=== PATIENT | male | born 1955 | race Two or more races ===

== ENCOUNTER 2020-04-15 22:26 | Inpatient (IN) | payer MEDICARE, MEDICAID ==
[~2020-04-15] VITALS: Ht 182.9 cm; Wt 93.0 kg
[2020-04-15] MEDS ORDERED: ETOMIDATE 2MG/ML 10ML VIAL IV ONE ×2 (22:50→23:30)
[2020-04-15] MEDS ORDERED: VECURONIUM BROMIDE 10 MG/VIAL IV ONE ×2 (22:50→23:30)
[2020-04-15] MEDS ORDERED: ONDANSETRON HCL 4MG/2ML INJ IV STA (23:18)
[2020-04-15] MEDS ORDERED: NOREPINEPHRINE 4 MG in DEXT 5% WATER 250 ML IV STA (23:18)
[2020-04-15] MEDS ORDERED: ACETAMINOPHEN 650MG SUPP PR STA (23:18)
[2020-04-15] MEDS ORDERED: SODIUM CHLORIDE 0.9% 1000ML BAG (SEPSIS BOLUS) IV ONE (23:30)
[2020-04-15] MEDS ORDERED: PIPERACILLIN/TAZ 3.375G PREMIX 50 ML IV ONE (23:30)
[2020-04-15] MEDS ORDERED: NOREPINEPHRINE 4 MG in DEXT 5% WATER 250 ML IV NR (23:30)
[2020-04-15] MEDS ORDERED: VANCOMYCIN 1 G PREMIX 200 ML IV ONE (23:30)
[2020-04-15 23:40] LABS: BG BASE EXCESS -2.3 mmol/L (-2.0-2.0); BG DEOXYHEMOGLOBIN 9.2 % (0.0-5.0); BG FRACTION INSPIRED OXYGEN 100; BG HCO3 ACT 21.5 mmol/L (22.0-26.0); BG METHEMOGLOBIN 0.3 % (0.0-1.5); BG OXYGEN SATURATION 90.8 % (92.0-98.5); BG OXYHEMOGLOBIN 90.5 % (94.0-97.0); BG PCO2 33.6 mmHg (35.0-45.0); BG PH 7.423 (7.350-7.450); BG PO2 61.6 mmHg (75.0-100.0); BG SAMPLE SITE RIGHT BRACHIAL; BG TIDAL VOLUME(mL) 500 mL; BG TOTAL HEMOGLOBIN 12.2 g/dL (12.0-18.0); BG VENT MODE VENT - A/C
[2020-04-15 23:45] LABS: CHLORIDE 109 mEq/L (98-107); HEMATOCRIT. 39.9 % (42.0-52.0); HEMOGLOBIN. 12.8 g/dL (14.0-18.0); MEAN CORPUSCULAR VOLUME 93.8 fL (80.0-94.0); MEAN PLATELET VOLUME 11.1 fl (7.4-10.4); PLATELET 246 x1000/uL (130-400); RED BLOOD CELL COUNT 4.25 mill/uL (4.7-6.1); RED CELL DISTRIBUTION WIDTH 14.6 % (11.6-14.6)
[2020-04-15 23:47] LABS: INR 1.5; PROTHROMBIN TIME 15.4 sec (9.6-11.0)
[2020-04-15 23:58] LABS: CLARITY URINE TURBID (CLEAR); COLOR URINE YELLOW (YELLOW); KETONES URINE NEGATIVE (NEGATIVE); LEUKOCYTE ESTERASE URINE 3+ (NEGATIVE); NITRITE URINE NEGATIVE (NEGATIVE); OCCULT BLOOD URINE 2+ (NEGATIVE); PROTEIN URINE 3+ (NEGATIVE); SPECIFIC GRAVITY URINE 1.031 (1.005-1.030); UROBILINOGEN URINE 0.2 E.U./dL (0.2-1.0)
[2020-04-16 00:19] LABS: BG TOTAL RESPIRATORY RATE 20 b/min; BG VENT RATE 16 set
[2020-04-16 00:32] LABS: PLATELET ESTIMATE NORMAL
[2020-04-16] MEDS ORDERED: NOREPINEPHRINE 4MG/250ML PMX 250 ML IV PRN (04:30)
[2020-04-16 05:43] LABS: HEMATOCRIT. 39.4 % (42.0-52.0); HEMOGLOBIN. 12.6 g/dL (14.0-18.0); MEAN CORPUSCULAR HEMOGLOBIN 29.7 pg (28.0-32.0); MEAN CORPUSCULAR VOLUME 92.7 fL (80.0-94.0); MEAN PLATELET VOLUME 10.6 fl (7.4-10.4); PLATELET 231 x1000/uL (130-400); RED BLOOD CELL COUNT 4.25 mill/uL (4.7-6.1); RED CELL DISTRIBUTION WIDTH 14.4 % (11.6-14.6)
[2020-04-16 05:58] LABS: CHLORIDE 113 mEq/L (98-107)
[2020-04-16 06:23] LABS: PLATELET ESTIMATE NORMAL
[2020-04-16] MEDS ORDERED: ONDANSETRON HCL 4MG/2ML INJ IV PRN (09:00)
[2020-04-16] MEDS: ACETAMINOPHEN 650MG SUPP PR PRN ×2 (09:28→18:11)
[2020-04-16] MEDS: SODIUM CHLORIDE 0.9% 1,000 ML IV SCH ×2 (09:42→20:04)
[2020-04-16] MEDS: PIPERACILLIN/TAZ 3.375G PREMIX 50 ML IV SCH ×3 (11:09→23:59)
[2020-04-16] MEDS: VANCOMYCIN 1 G PREMIX 200 ML IV SCH ×2 (12:01→23:59)
[2020-04-16] MEDS ORDERED: LORAZEPAM 2MG/ML CPJ IV PRN ×2 (13:00→20:00)
[2020-04-16] MEDS: LEVETIRACETAM 500MG PREMIX 100 ML IV SCH (13:39)
[2020-04-16] MEDS ORDERED: IPRATROPIUM/ALBUTEROL 0.5-3(2.5)MG/3ML NEB HHN PRN (19:45)
[2020-04-16] MEDS ORDERED: FENTANYL CITRATE/PF 1,000 MCG in SODIUM CHLORIDE 0.9% 80 ML IV PRN (20:00)
[2020-04-16] MEDS ORDERED: NOREPINEPHRINE 32 MG in DEXT 5% WATER 468 ML IV PRN (21:00)
[2020-04-16] MEDS: ACETYLCYSTEINE 100MG/ML 10% VIAL 4ML INH SCH (22:00)
[2020-04-16] MEDS: NOREPINEPHRINE 32 MG in DEXT 5% WATER 468 ML IV PRN (22:44)
[2020-04-17] VITALS (18 sets, daily range): BP systolic 93–144; BP diastolic 58–84
[2020-04-17] MEDS: ENOXAPARIN 100MG/ML SYR SUBCUT SCH ×3 (00:14→23:49)
[2020-04-17] MEDS: ACETYLCYSTEINE 100MG/ML 10% VIAL 4ML INH SCH ×3 (00:33→13:06)
[2020-04-17] MEDS: LEVETIRACETAM 500MG PREMIX 100 ML IV SCH ×3 (01:18→20:40)
[2020-04-17] MEDS ORDERED: IPRATROPIUM/ALBUTEROL 0.5-3(2.5)MG/3ML NEB ONE (04:17)
[2020-04-17 05:03] LABS: CHLORIDE 116 mEq/L (98-107)
[2020-04-17 05:09] LABS: HDL CHOLESTEROL 11 mg/dL (40-59); LDL CHOLESTEROL 25 mg/dL (5-100)
[2020-04-17 05:26] LABS: HEMATOCRIT. 45.6 % (42.0-52.0); HEMOGLOBIN. 14.3 g/dL (14.0-18.0); MEAN CORPUSCULAR HEMOGLOBIN 29.7 pg (28.0-32.0); MEAN CORPUSCULAR VOLUME 94.8 fL (80.0-94.0); MEAN PLATELET VOLUME 11.6 fl (7.4-10.4); PLATELET 150 x1000/uL (130-400); RED BLOOD CELL COUNT 4.81 mill/uL (4.7-6.1); RED CELL DISTRIBUTION WIDTH 15.1 % (11.6-14.6)
[2020-04-17] MEDS: PIPERACILLIN/TAZ 3.375G PREMIX 50 ML IV SCH ×2 (05:48→09:30)
[2020-04-17] MEDS ORDERED: PIPERACILLIN/TAZ 3.375G PREMIX 50 ML IV ONE ×2 (05:51→07:52)
[2020-04-17] MEDS ORDERED: DEXTROSE 50% WATER 50ML SYRINGE IV PRN (06:00)
[2020-04-17] MEDS: INSULIN LISPRO (HIGH DOSE) 100 UNITS/ML SUBCUT SCH ×2 (06:26→12:00)
[2020-04-17] MEDS: BLOOD SUGAR DIAGNOSTIC STRIP TEST SCH ×4 (06:28→23:26)
[2020-04-17] MEDS ORDERED: INSULIN LISPRO 100 UNITS/ML SUBCUT NR (06:29)
[2020-04-17] MEDS ORDERED: INSULIN LISPRO 100 UNITS/ML SUBCUT ONE ×2 (06:30→06:43)
[2020-04-17] MEDS ORDERED: KCL 20MEQ/100ML PREMIX 100 ML IV NR (06:45)
[2020-04-17] MEDS: SODIUM CHLORIDE 0.9% 1,000 ML IV SCH (06:49)
[2020-04-17 08:50] LABS: BG BASE EXCESS -1.8 mmol/L (-2.0-2.0); BG CARBOXYHEMOGLOBIN 0.3 % (0.5-1.5); BG DEOXYHEMOGLOBIN 1.2 % (0.0-5.0); BG FRACTION INSPIRED OXYGEN 100; BG HCO3 ACT 23.6 mmol/L (22.0-26.0); BG METHEMOGLOBIN 0.3 % (0.0-1.5); BG OXYGEN SATURATION 98.8 % (92.0-98.5); BG OXYHEMOGLOBIN 98.2 % (94.0-97.0); BG PCO2 42.6 mmHg (35.0-45.0); BG PH 7.361 (7.350-7.450); BG PO2 160.3 mmHg (75.0-100.0); BG SAMPLE SITE RIGHT BRACHIAL; BG TIDAL VOLUME(mL) 500 mL; BG TOTAL HEMOGLOBIN 12.3 g/dL (12.0-18.0); BG VENT MODE VENT - A/C; BG VENT RATE 16 set
[2020-04-17] MEDS: PANTOPRAZOLE SODIUM 40 MG/VIAL IV SCH (09:00)
[2020-04-17] MEDS: IPRATROPIUM/ALBUTEROL 0.5-3(2.5)MG/3ML NEB HHN SCH ×4 (09:40→19:58)
[2020-04-17] MEDS: INSULIN GLARGINE UD 100 UNITS/ML SYR SUBCUT SCH ×2 (11:00→21:53)
[2020-04-17 12:08] LABS: PLATELET ESTIMATE NORMAL
[2020-04-17] MEDS: ACETAMINOPHEN 650MG SUPP PR PRN (15:46)
[2020-04-17] MEDS: FENTANYL CITRATE/PF 1,000 MCG in SODIUM CHLORIDE 0.9% 80 ML IV PRN ×2 (17:00→19:15)
[2020-04-17] MEDS ORDERED: VECURONIUM BROMIDE 10 MG/VIAL IV ONE (17:22)
[2020-04-17] MEDS ORDERED: ETOMIDATE 2MG/ML 10ML VIAL IV ONE (17:22)
[2020-04-17] MEDS: SODIUM CHLORIDE 0.45% 1,000 ML IV SCH (17:23)
[2020-04-17] MEDS: INSULIN LISPRO 100 UNITS/ML SUBCUT SCH ×2 (17:34→23:27)
[2020-04-17] MEDS ORDERED: VANCOMYCIN 1250MG in DEXTROSE 5% WATER 250ML IV SCH (18:00)
[2020-04-17] MEDS: PIPERACILLIN/TAZOBACTAM 3.375 G in DEXT 5% WATER 100 ML IV SCH ×2 (18:30→23:45)
[2020-04-17] MEDS: VANCOMYCIN 1250MG in DEXTROSE 5% WATER 250ML IV SCH (20:40)
[2020-04-18] VITALS (71 sets, daily range): BP systolic 79–137; BP diastolic 49–94
[2020-04-18] MEDS: IPRATROPIUM/ALBUTEROL 0.5-3(2.5)MG/3ML NEB HHN SCH ×5 (00:33→16:00)
[2020-04-18] MEDS: ACETAMINOPHEN 650MG SUPP PR PRN (05:26)
[2020-04-18] MEDS: PIPERACILLIN/TAZOBACTAM 3.375 G in DEXT 5% WATER 100 ML IV SCH ×4 (05:30→23:55)
[2020-04-18] MEDS: INSULIN LISPRO 100 UNITS/ML SUBCUT SCH ×3 (06:00→18:00)
[2020-04-18 06:15] LABS: HEMATOCRIT. 31.6 % (42.0-52.0); HEMOGLOBIN. 10.1 g/dL (14.0-18.0); MEAN CORPUSCULAR HEMOGLOBIN 29.8 pg (28.0-32.0); MEAN CORPUSCULAR VOLUME 92.8 fL (80.0-94.0); MEAN PLATELET VOLUME 11.4 fl (7.4-10.4); PLATELET 165 x1000/uL (130-400); RED BLOOD CELL COUNT 3.41 mill/uL (4.7-6.1); RED CELL DISTRIBUTION WIDTH 14.7 % (11.6-14.6)
[2020-04-18] MEDS: BLOOD SUGAR DIAGNOSTIC STRIP TEST SCH ×3 (06:19→18:00)
[2020-04-18 07:38] LABS: BG BASE EXCESS -0.1 mmol/L (-2.0-2.0); BG CARBOXYHEMOGLOBIN 0.3 % (0.5-1.5); BG DEOXYHEMOGLOBIN 9.3 % (0.0-5.0); BG FRACTION INSPIRED OXYGEN 60; BG HCO3 ACT 24.4 mmol/L (22.0-26.0); BG METHEMOGLOBIN 0.3 % (0.0-1.5); BG OXYGEN SATURATION 90.6 % (92.0-98.5); BG OXYHEMOGLOBIN 90.1 % (94.0-97.0); BG PCO2 39.4 mmHg (35.0-45.0); BG PO2 56.7 mmHg (75.0-100.0); BG SAMPLE SITE RIGHT RADIAL; BG TIDAL VOLUME(mL) 500 mL; BG TOTAL HEMOGLOBIN 11.1 g/dL (12.0-18.0); BG VENT MODE VENT - A/C; BG VENT RATE 16 set
[2020-04-18] MEDS: ACETYLCYSTEINE 100MG/ML 10% VIAL 4ML INH SCH ×2 (08:10→16:00)
[2020-04-18] MEDS: LEVETIRACETAM 500MG PREMIX 100 ML IV SCH ×2 (08:12→21:52)
[2020-04-18] MEDS: PANTOPRAZOLE SODIUM 40 MG/VIAL IV SCH (08:12)
[2020-04-18] MEDS: SODIUM CHLORIDE 0.45% 1,000 ML IV SCH ×2 (08:12→17:59)
[2020-04-18] MEDS ORDERED: KCL 20MEQ/100ML PREMIX 100 ML IV NR (09:00)
[2020-04-18] MEDS: INSULIN GLARGINE UD 100 UNITS/ML SYR SUBCUT SCH ×2 (10:31→22:57)
[2020-04-18 11:36] LABS: BG BASE EXCESS -0.5 mmol/L (-2.0-2.0); BG CARBOXYHEMOGLOBIN 0.3 % (0.5-1.5); BG DEOXYHEMOGLOBIN 1.2 % (0.0-5.0); BG FRACTION INSPIRED OXYGEN 75; BG HCO3 ACT 22.8 mmol/L (22.0-26.0); BG METHEMOGLOBIN 0.3 % (0.0-1.5); BG OXYGEN SATURATION 98.8 % (92.0-98.5); BG OXYHEMOGLOBIN 98.2 % (94.0-97.0); BG PCO2 32.8 mmHg (35.0-45.0); BG PO2 168.1 mmHg (75.0-100.0); BG SAMPLE SITE RIGHT RADIAL; BG TIDAL VOLUME(mL) 500 mL; BG VENT MODE VENT - A/C; BG VENT RATE 14 set
[2020-04-18 12:11] LABS: PLATELET ESTIMATE NORMAL
[2020-04-18] MEDS: ENOXAPARIN 100MG/ML SYR SUBCUT SCH (12:36)
[2020-04-18] MEDS: VANCOMYCIN 1250MG in DEXTROSE 5% WATER 250ML IV SCH (15:00)
[2020-04-19] VITALS (49 sets, daily range): BP systolic 94–142; BP diastolic 57–78
[2020-04-19] MEDS: ENOXAPARIN 100MG/ML SYR SUBCUT SCH
[2020-04-19] MEDS: ACETYLCYSTEINE 100MG/ML 10% VIAL 4ML INH SCH ×3 (00:18→16:12)
[2020-04-19] MEDS: IPRATROPIUM/ALBUTEROL 0.5-3(2.5)MG/3ML NEB HHN SCH ×6 (00:18→22:03)
[2020-04-19 05:41] LABS: HEMOGLOBIN. 9.6 g/dL (14.0-18.0); MEAN CORPUSCULAR HEMOGLOBIN 29.8 pg (28.0-32.0); MEAN CORPUSCULAR VOLUME 93.2 fL (80.0-94.0); MEAN PLATELET VOLUME 11.4 fl (7.4-10.4); PLATELET 119 x1000/uL (130-400); RED BLOOD CELL COUNT 3.22 mill/uL (4.7-6.1); RED CELL DISTRIBUTION WIDTH 14.5 % (11.6-14.6)
[2020-04-19] MEDS: SODIUM CHLORIDE 0.45% 1,000 ML IV SCH ×2 (05:55→19:10)
[2020-04-19] MEDS: PIPERACILLIN/TAZOBACTAM 3.375 G in DEXT 5% WATER 100 ML IV SCH ×4 (05:55→23:44)
[2020-04-19] MEDS: INSULIN LISPRO 100 UNITS/ML SUBCUT SCH ×5 (06:00→23:44)
[2020-04-19] MEDS: BLOOD SUGAR DIAGNOSTIC STRIP TEST SCH ×5 (06:23→23:44)
[2020-04-19 08:53] LABS: BG BASE EXCESS 0.3 mmol/L (-2.0-2.0); BG CARBOXYHEMOGLOBIN 0.3 % (0.5-1.5); BG DEOXYHEMOGLOBIN 1.3 % (0.0-5.0); BG FRACTION INSPIRED OXYGEN 50; BG HCO3 ACT 24.6 mmol/L (22.0-26.0); BG METHEMOGLOBIN 0.3 % (0.0-1.5); BG OXYGEN SATURATION 98.7 % (92.0-98.5); BG OXYHEMOGLOBIN 98.1 % (94.0-97.0); BG PCO2 38.2 mmHg (35.0-45.0); BG PH 7.426 (7.350-7.450); BG PO2 134.3 mmHg (75.0-100.0); BG SAMPLE SITE RIGHT RADIAL; BG TIDAL VOLUME(mL) 500 mL; BG TOTAL HEMOGLOBIN 10.2 g/dL (12.0-18.0); BG VENT MODE VENT - A/C; BG VENT RATE 14 set
[2020-04-19] MEDS: LEVETIRACETAM 500MG PREMIX 100 ML IV SCH ×2 (10:53→21:55)
[2020-04-19] MEDS: ASCORBIC ACID 500 MG TABLET PO SCH (10:53)
[2020-04-19] MEDS: ZINC SULFATE 220 MG ( 50 ) CAPSULE PO SCH (10:53)
[2020-04-19] MEDS: PANTOPRAZOLE SODIUM 40 MG/VIAL IV SCH (10:53)
[2020-04-19] MEDS: INSULIN GLARGINE UD 100 UNITS/ML SYR SUBCUT SCH ×2 (10:54→22:51)
[2020-04-19 11:42] LABS: PLATELET ESTIMATE SLIGHTLY DECREASED
[2020-04-19 13:19] LABS: BG BASE EXCESS 0.2 mmol/L (-2.0-2.0); BG CARBOXYHEMOGLOBIN 0.3 % (0.5-1.5); BG FRACTION INSPIRED OXYGEN 45; BG HCO3 ACT 24.2 mmol/L (22.0-26.0); BG METHEMOGLOBIN 0.3 % (0.0-1.5); BG OXYHEMOGLOBIN 97.4 % (94.0-97.0); BG PCO2 36.5 mmHg (35.0-45.0); BG PH 7.439 (7.350-7.450); BG PO2 105.1 mmHg (75.0-100.0); BG SAMPLE SITE RIGHT RADIAL; BG TIDAL VOLUME(mL) 500 mL; BG TOTAL HEMOGLOBIN 10.2 g/dL (12.0-18.0); BG VENT MODE VENT - A/C; BG VENT RATE 14 set
[2020-04-19 16:06] LABS: BG BASE EXCESS 0.8 mmol/L (-2.0-2.0); BG CARBOXYHEMOGLOBIN 0.3 % (0.5-1.5); BG DEOXYHEMOGLOBIN 2.4 % (0.0-5.0); BG FRACTION INSPIRED OXYGEN 40; BG HCO3 ACT 24.3 mmol/L (22.0-26.0); BG METHEMOGLOBIN 0.3 % (0.0-1.5); BG OXYGEN SATURATION 97.6 % (92.0-98.5); BG PCO2 34.4 mmHg (35.0-45.0); BG PH 7.467 (7.350-7.450); BG PO2 98.2 mmHg (75.0-100.0); BG PRESSURE SUPPORT 12; BG SAMPLE SITE RIGHT RADIAL; BG TIDAL VOLUME(mL) 500 mL; BG VENT MODE VENT - SIMV; BG VENT RATE 12 set
[2020-04-19] MEDS: ACETAMINOPHEN 650MG SUPP PR PRN (19:11)
[2020-04-19] MEDS: LORAZEPAM 2MG/ML CPJ IV PRN (20:41)
[2020-04-20] VITALS (49 sets, daily range): BP systolic 86–159; BP diastolic 47–101
[2020-04-20] MEDS: ACETYLCYSTEINE 100MG/ML 10% VIAL 4ML INH SCH ×2 (01:16→08:28)
[2020-04-20] MEDS: IPRATROPIUM/ALBUTEROL 0.5-3(2.5)MG/3ML NEB HHN SCH ×5 (01:17→20:32)
[2020-04-20] MEDS: LORAZEPAM 2MG/ML CPJ IV PRN ×2 (02:29→07:11)
[2020-04-20] MEDS: PIPERACILLIN/TAZOBACTAM 3.375 G in DEXT 5% WATER 100 ML IV SCH ×4 (05:55→23:52)
[2020-04-20] MEDS: SODIUM CHLORIDE 0.45% 1,000 ML IV SCH ×2 (05:55→19:34)
[2020-04-20] MEDS: INSULIN LISPRO 100 UNITS/ML SUBCUT SCH ×5 (06:00→23:51)
[2020-04-20] MEDS: BLOOD SUGAR DIAGNOSTIC STRIP TEST SCH ×3 (06:27→17:30)
[2020-04-20 06:46] LABS: HEMATOCRIT. 27.9 % (42.0-52.0); HEMOGLOBIN. 9.1 g/dL (14.0-18.0); MEAN CORPUSCULAR HEMOGLOBIN 30.1 pg (28.0-32.0); MEAN CORPUSCULAR VOLUME 92.4 fL (80.0-94.0); MEAN PLATELET VOLUME 11.2 fl (7.4-10.4); PLATELET 117 x1000/uL (130-400); RED BLOOD CELL COUNT 3.03 mill/uL (4.7-6.1); RED CELL DISTRIBUTION WIDTH 14.4 % (11.6-14.6)
[2020-04-20] MEDS: ASCORBIC ACID 500 MG TABLET PO SCH (08:19)
[2020-04-20] MEDS: ZINC SULFATE 220 MG ( 50 ) CAPSULE PO SCH (08:19)
[2020-04-20] MEDS: LEVETIRACETAM 500MG PREMIX 100 ML IV SCH ×2 (08:19→21:03)
[2020-04-20] MEDS: PANTOPRAZOLE SODIUM 40 MG/VIAL IV SCH (08:19)
[2020-04-20] MEDS: ENOXAPARIN 40MG/0.4ML SYR SUBCUT SCH (08:20)
[2020-04-20 08:25] LABS: BG BASE EXCESS -5.5 mmol/L (-2.0-2.0); BG CARBOXYHEMOGLOBIN 0.3 % (0.5-1.5); BG DEOXYHEMOGLOBIN 5.8 % (0.0-5.0); BG FRACTION INSPIRED OXYGEN 40; BG HCO3 ACT 18.5 mmol/L (22.0-26.0); BG METHEMOGLOBIN 0.3 % (0.0-1.5); BG OXYGEN SATURATION 94.2 % (92.0-98.5); BG OXYHEMOGLOBIN 93.6 % (94.0-97.0); BG PCO2 31.2 mmHg (35.0-45.0); BG PH 7.392 (7.350-7.450); BG PO2 68.6 mmHg (75.0-100.0); BG PRESSURE SUPPORT 12; BG SAMPLE SITE RIGHT RADIAL; BG TIDAL VOLUME(mL) 500 mL; BG TOTAL HEMOGLOBIN 10.8 g/dL (12.0-18.0); BG VENT MODE VENT - SIMV; BG VENT RATE 10 set
[2020-04-20] MEDS: ACETAMINOPHEN 650MG SUPP PR PRN (08:39)
[2020-04-20 10:35] LABS: PLATELET ESTIMATE DECREASED
[2020-04-20] MEDS: INSULIN GLARGINE UD 100 UNITS/ML SYR SUBCUT SCH ×2 (10:57→22:00)
[2020-04-20] MEDS ORDERED: VANCOMYCIN 1250MG in DEXTROSE 5% WATER 250ML IV SCH (23:00)
[2020-04-21] VITALS (44 sets, daily range): BP systolic 81–148; BP diastolic 50–80
[2020-04-21] MEDS: IPRATROPIUM/ALBUTEROL 0.5-3(2.5)MG/3ML NEB HHN SCH ×6 (00:10→20:47)
[2020-04-21] MEDS: ACETYLCYSTEINE 100MG/ML 10% VIAL 4ML INH SCH ×2 (00:10→14:44)
[2020-04-21 05:58] LABS: BASOPHILS % 0.3 % (0.0-2.0); EOSINOPHILS % 6.8 % (0.0-5.0); HEMATOCRIT. 28.7 % (42.0-52.0); HEMOGLOBIN. 9.4 g/dL (14.0-18.0); LYMPHOCYTES % 7.4 % (20.0-50.0); MEAN CORPUSCULAR HEMOGLOBIN 30.6 pg (28.0-32.0); MEAN CORPUSCULAR VOLUME 93.8 fL (80.0-94.0); MEAN PLATELET VOLUME 10.5 fl (7.4-10.4); MONOCYTES % 8.1 % (2.0-8.0); NEUTROPHILS % 77.4 % (40.0-76.0); PLATELET 126 x1000/uL (130-400); RED BLOOD CELL COUNT 3.06 mill/uL (4.7-6.1); RED CELL DISTRIBUTION WIDTH 14.9 % (11.6-14.6)
[2020-04-21] MEDS: INSULIN LISPRO 100 UNITS/ML SUBCUT SCH ×3 (06:00→17:43)
[2020-04-21] MEDS: BLOOD SUGAR DIAGNOSTIC STRIP TEST SCH ×4 (06:00→17:43)
[2020-04-21] MEDS: SODIUM CHLORIDE 0.45% 1,000 ML IV SCH (09:20)
[2020-04-21] MEDS: PANTOPRAZOLE SODIUM 40 MG/VIAL IV SCH (09:27)
[2020-04-21] MEDS: LEVETIRACETAM 500MG PREMIX 100 ML IV SCH ×2 (09:27→21:07)
[2020-04-21] MEDS: ZINC SULFATE 220 MG ( 50 ) CAPSULE PO SCH (09:27)
[2020-04-21] MEDS: ASCORBIC ACID 500 MG TABLET PO SCH (09:27)
[2020-04-21 09:30] LABS: BG BASE EXCESS -1.4 mmol/L (-2.0-2.0); BG CARBOXYHEMOGLOBIN 0.3 % (0.5-1.5); BG DEOXYHEMOGLOBIN 2.4 % (0.0-5.0); BG FRACTION INSPIRED OXYGEN 45; BG HCO3 ACT 22.1 mmol/L (22.0-26.0); BG METHEMOGLOBIN 0.1 % (0.0-1.5); BG OXYGEN SATURATION 97.6 % (92.0-98.5); BG OXYHEMOGLOBIN 97.2 % (94.0-97.0); BG PCO2 32.1 mmHg (35.0-45.0); BG PH 7.456 (7.350-7.450); BG PO2 95.4 mmHg (75.0-100.0); BG SAMPLE SITE RIGHT RADIAL; BG TIDAL VOLUME(mL) 500 mL; BG TOTAL HEMOGLOBIN 8.9 g/dL (12.0-18.0); BG VENT MODE VENT - A/C; BG VENT RATE 14 set
[2020-04-21] MEDS: ENOXAPARIN 40MG/0.4ML SYR SUBCUT SCH (09:31)
[2020-04-21] MEDS: INSULIN GLARGINE UD 100 UNITS/ML SYR SUBCUT SCH ×2 (11:00→22:15)
[2020-04-21] MEDS: DEXT 5%/0.9% NACL 1,000 ML IV SCH (15:15)
[2020-04-22] VITALS (76 sets, daily range): BP systolic 76–190; BP diastolic 50–108
[2020-04-22] MEDS: IPRATROPIUM/ALBUTEROL 0.5-3(2.5)MG/3ML NEB HHN SCH ×7 (00:14→23:56)
[2020-04-22 05:48] LABS: PROTHROMBIN TIME 10.9 sec (9.6-11.0)
[2020-04-22 05:50] LABS: BASOPHILS % 0.4 % (0.0-2.0); EOSINOPHILS % 6.8 % (0.0-5.0); HEMATOCRIT. 28.3 % (42.0-52.0); HEMOGLOBIN. 9.3 g/dL (14.0-18.0); LYMPHOCYTES % 10.3 % (20.0-50.0); MEAN CORPUSCULAR HEMOGLOBIN 30.3 pg (28.0-32.0); MEAN CORPUSCULAR VOLUME 92.5 fL (80.0-94.0); MEAN PLATELET VOLUME 9.9 fl (7.4-10.4); MONOCYTES % 11.8 % (2.0-8.0); NEUTROPHILS % 70.7 % (40.0-76.0); PLATELET 189 x1000/uL (130-400); RED BLOOD CELL COUNT 3.06 mill/uL (4.7-6.1)
[2020-04-22 05:53] LABS: CHLORIDE 119 mEq/L (98-107)
[2020-04-22] MEDS: INSULIN LISPRO 100 UNITS/ML SUBCUT SCH ×4 (05:55→18:00)
[2020-04-22] MEDS: BLOOD SUGAR DIAGNOSTIC STRIP TEST SCH ×5 (05:55→23:54)
[2020-04-22 05:59] LABS: PHOSPHORUS 1.4 mg/dL (2.5-4.9)
[2020-04-22 06:02] LABS: CREATINE KINASE 39 IU/L (39-308)
[2020-04-22] MEDS: DEXT 5%/0.9% NACL 1,000 ML IV SCH (07:02)
[2020-04-22] MEDS: ZINC SULFATE 220 MG ( 50 ) CAPSULE PO SCH (09:03)
[2020-04-22] MEDS: ASCORBIC ACID 500 MG TABLET PO SCH (09:03)
[2020-04-22] MEDS: PANTOPRAZOLE SODIUM 40 MG/VIAL IV SCH (09:03)
[2020-04-22] MEDS: ENOXAPARIN 40MG/0.4ML SYR SUBCUT SCH (09:04)
[2020-04-22] MEDS: LEVETIRACETAM 500MG PREMIX 100 ML IV SCH ×2 (09:09→20:51)
[2020-04-22 09:59] LABS: BG BASE EXCESS -2.2 mmol/L (-2.0-2.0); BG CARBOXYHEMOGLOBIN 0.3 % (0.5-1.5); BG DEOXYHEMOGLOBIN 2.9 % (0.0-5.0); BG FRACTION INSPIRED OXYGEN 40; BG HCO3 ACT 23.7 mmol/L (22.0-26.0); BG OXYGEN SATURATION 97.1 % (92.0-98.5); BG OXYHEMOGLOBIN 96.8 % (94.0-97.0); BG PCO2 45.2 mmHg (35.0-45.0); BG PH 7.337 (7.350-7.450); BG PO2 97.7 mmHg (75.0-100.0); BG SAMPLE SITE RIGHT RADIAL; BG TIDAL VOLUME(mL) 500 mL; BG TOTAL HEMOGLOBIN 10.2 g/dL (12.0-18.0); BG VENT MODE VENT - A/C; BG VENT RATE 12 set
[2020-04-22] MEDS: HYDROMORPHONE HCL/PF 2MG/ML CPJ IV PRN (10:06)
[2020-04-22] MEDS: ACETAMINOPHEN 650MG/20.3ML UDC PEG PRN ×2 (10:14→20:51)
[2020-04-22] MEDS: INSULIN GLARGINE UD 100 UNITS/ML SYR SUBCUT SCH ×2 (10:36→21:29)
[2020-04-22] MEDS: NOREPINEPHRINE 32 MG in DEXT 5% WATER 468 ML IV PRN (12:56)
[2020-04-22] MEDS ORDERED: DEXT 5%/0.45% NACL 1000ML 1,000 ML IV ONE (18:00)
[2020-04-22] MEDS: DEXT 5%/0.45% NACL 1000ML 1,000 ML IV SCH (19:01)
[2020-04-22] MEDS ORDERED: POTASSIUM PHOS,M-BASIC-D-BASIC 20 MMOL in DEXT 5% WATER 243.3333 ML IV ONE (20:00)
[2020-04-22 21:05] LABS: ETHANOL BLOOD < 10 mg/dL
[2020-04-22 21:11] LABS: T4 FREE 1.31 ng/dL (0.76-1.46)
[2020-04-22 21:27] LABS: VITAMIN B12 SERUM 1019 pg/mL (211-911)
[2020-04-22 21:30] LABS: FOLIC ACID (FOLATE) SERUM > 20.00 ng/mL (>5.38)
[2020-04-22 21:43] LABS: *AMPHETAMINES SCREEN URINE NEGATIVE (NEGATIVE); *BARBITURATES SCREEN URINE NEGATIVE (NEGATIVE); *BENZODIAZEPINES SCREEN URINE NEGATIVE (NEGATIVE)
[2020-04-22 21:44] LABS: *COCAINE SCREEN URINE NEGATIVE (NEGATIVE); CANNABINOID URINE SCREEN NEGATIVE (NEGATIVE); METHADONE URINE SCREEN NEGATIVE (NEGATIVE); OPIATES URINE SCREEN NEGATIVE (NEGATIVE); PHENCYCLIDINE URINE SCREEN NEGATIVE (NEGATIVE)
[2020-04-22] MEDS: CEFEPIME 1,000 MG in DEXTROSE 5% WATER 50 ML IV SCH (23:59)
[2020-04-23] VITALS (48 sets, daily range): BP systolic 99–167; BP diastolic 55–88
[2020-04-23] MEDS: HYDROMORPHONE HCL/PF 2MG/ML CPJ IV PRN (02:02)
[2020-04-23] MEDS: IPRATROPIUM/ALBUTEROL 0.5-3(2.5)MG/3ML NEB HHN SCH ×5 (03:41→20:25)
[2020-04-23] MEDS: DEXT 5%/0.45% NACL 1000ML 1,000 ML IV SCH ×2 (03:59→13:38)
[2020-04-23] MEDS: BLOOD SUGAR DIAGNOSTIC STRIP TEST SCH ×3 (05:45→17:21)
[2020-04-23] MEDS: INSULIN LISPRO 100 UNITS/ML SUBCUT SCH ×4 (05:49→17:25)
[2020-04-23 06:41] LABS: HEMATOCRIT. 28.2 % (42.0-52.0); HEMOGLOBIN. 8.9 g/dL (14.0-18.0); MEAN CORPUSCULAR HEMOGLOBIN 29.6 pg (28.0-32.0); MEAN CORPUSCULAR VOLUME 93.5 fL (80.0-94.0); MEAN PLATELET VOLUME 9.7 fl (7.4-10.4); PLATELET 226 x1000/uL (130-400); RED BLOOD CELL COUNT 3.02 mill/uL (4.7-6.1); RED CELL DISTRIBUTION WIDTH 14.9 % (11.6-14.6)
[2020-04-23 06:55] LABS: CHLORIDE 119 mEq/L (98-107)
[2020-04-23 07:02] LABS: PHOSPHORUS 2.9 mg/dL (2.5-4.9)
[2020-04-23] MEDS: PANTOPRAZOLE SODIUM 40 MG/VIAL IV SCH (08:02)
[2020-04-23] MEDS: LEVETIRACETAM 500MG PREMIX 100 ML IV SCH ×2 (08:02→20:49)
[2020-04-23] MEDS: ZINC SULFATE 220 MG ( 50 ) CAPSULE PO SCH (08:02)
[2020-04-23] MEDS: ASCORBIC ACID 500 MG TABLET PO SCH (08:02)
[2020-04-23] MEDS: ACETAMINOPHEN 650MG/20.3ML UDC PEG PRN ×2 (08:02→20:48)
[2020-04-23] MEDS: ENOXAPARIN 40MG/0.4ML SYR SUBCUT SCH (08:09)
[2020-04-23 08:46] LABS: BG BASE EXCESS -2.1 mmol/L (-2.0-2.0); BG CARBOXYHEMOGLOBIN 0.3 % (0.5-1.5); BG DEOXYHEMOGLOBIN 1.7 % (0.0-5.0); BG FRACTION INSPIRED OXYGEN 40; BG HCO3 ACT 22.1 mmol/L (22.0-26.0); BG METHEMOGLOBIN 0.3 % (0.0-1.5); BG OXYGEN SATURATION 98.3 % (92.0-98.5); BG OXYHEMOGLOBIN 97.7 % (94.0-97.0); BG PCO2 35.2 mmHg (35.0-45.0); BG PH 7.416 (7.350-7.450); BG PO2 114.3 mmHg (75.0-100.0); BG SAMPLE SITE RIGHT RADIAL; BG TIDAL VOLUME(mL) 500 mL; BG TOTAL HEMOGLOBIN 9.1 g/dL (12.0-18.0); BG VENT MODE VENT - A/C; BG VENT RATE 12 set
[2020-04-23 09:57] LABS: PLATELET ESTIMATE NORMAL
[2020-04-23] MEDS ORDERED: MORPHINE SULFATE 2 MG/ML CPJ (NOT FOR IM USE) IV PRN (10:00)
[2020-04-23] MEDS: INSULIN GLARGINE UD 100 UNITS/ML SYR SUBCUT SCH ×2 (10:24→22:04)
[2020-04-23 13:07] LABS: *CREATININE RANDOM URINE 25.2 mg/dL (Not Estab.); MICROALBUMIN RANDOM URINE 81.7 ug/mL (Not Estab.)
[2020-04-23] MEDS: CEFEPIME 1,000 MG in DEXTROSE 5% WATER 50 ML IV SCH (20:49)
[2020-04-24] VITALS (47 sets, daily range): BP systolic 107–175; BP diastolic 57–88
[2020-04-24] MEDS: IPRATROPIUM/ALBUTEROL 0.5-3(2.5)MG/3ML NEB HHN SCH ×6 (00:15→20:20)
[2020-04-24] MEDS: BLOOD SUGAR DIAGNOSTIC STRIP TEST SCH ×4 (00:22→17:56)
[2020-04-24] MEDS: DEXT 5%/0.45% NACL 1000ML 1,000 ML IV SCH ×2 (00:22→09:58)
[2020-04-24] MEDS: INSULIN LISPRO 100 UNITS/ML SUBCUT SCH ×4 (00:23→17:56)
[2020-04-24] MEDS: MEROPENEM 1,000 MG in SODIUM CHLORIDE 0.9% 100 ML IV SCH ×2 (02:43→14:06)
[2020-04-24 05:45] LABS: CHLORIDE 115 mEq/L (98-107)
[2020-04-24 05:51] LABS: PHOSPHORUS 3.2 mg/dL (2.5-4.9)
[2020-04-24 06:22] LABS: BASOPHILS % 1.1 % (0.0-2.0); EOSINOPHILS % 3.8 % (0.0-5.0); HEMATOCRIT. 29.8 % (42.0-52.0); HEMOGLOBIN. 9.7 g/dL (14.0-18.0); LYMPHOCYTES % 10.5 % (20.0-50.0); MEAN CORPUSCULAR VOLUME 92.6 fL (80.0-94.0); MEAN PLATELET VOLUME 10.3 fl (7.4-10.4); MONOCYTES % 5.3 % (2.0-8.0); NEUTROPHILS % 79.3 % (40.0-76.0); PLATELET 225 x1000/uL (130-400); RED BLOOD CELL COUNT 3.22 mill/uL (4.7-6.1); RED CELL DISTRIBUTION WIDTH 15.2 % (11.6-14.6)
[2020-04-24] MEDS: LEVETIRACETAM 500MG PREMIX 100 ML IV SCH ×2 (08:37→21:28)
[2020-04-24] MEDS: ENOXAPARIN 40MG/0.4ML SYR SUBCUT SCH (08:38)
[2020-04-24] MEDS: ASCORBIC ACID 500 MG TABLET PO SCH (08:38)
[2020-04-24] MEDS: ZINC SULFATE 220 MG ( 50 ) CAPSULE PO SCH (08:38)
[2020-04-24] MEDS: PANTOPRAZOLE SODIUM 40 MG/VIAL IV SCH (08:38)
[2020-04-24] MEDS: INSULIN GLARGINE UD 100 UNITS/ML SYR SUBCUT SCH ×2 (09:58→21:28)
[2020-04-24] MEDS ORDERED: LIDOCAINE HCL 1% 20ML VIAL (Pyxis) INJ ONE (10:52)
[2020-04-24] MEDS: ACETAMINOPHEN 650MG/20.3ML UDC PEG PRN (13:06)
[2020-04-25] VITALS (50 sets, daily range): BP systolic 115–174; BP diastolic 62–91
[2020-04-25] MEDS: BLOOD SUGAR DIAGNOSTIC STRIP TEST SCH ×4 (00:06→18:00)
[2020-04-25] MEDS: IPRATROPIUM/ALBUTEROL 0.5-3(2.5)MG/3ML NEB HHN SCH ×6 (00:10→20:31)
[2020-04-25] MEDS: MEROPENEM 1,000 MG in SODIUM CHLORIDE 0.9% 100 ML IV SCH ×2 (02:09→15:06)
[2020-04-25 05:45] LABS: BASOPHILS % 0.7 % (0.0-2.0); EOSINOPHILS % 3.7 % (0.0-5.0); HEMATOCRIT. 24.8 % (42.0-52.0); LYMPHOCYTES % 10.6 % (20.0-50.0); MEAN CORPUSCULAR HEMOGLOBIN 29.3 pg (28.0-32.0); MEAN CORPUSCULAR VOLUME 91.7 fL (80.0-94.0); MEAN PLATELET VOLUME 9.2 fl (7.4-10.4); MONOCYTES % 4.5 % (2.0-8.0); NEUTROPHILS % 80.5 % (40.0-76.0); PLATELET 292 x1000/uL (130-400); RED BLOOD CELL COUNT 2.71 mill/uL (4.7-6.1); RED CELL DISTRIBUTION WIDTH 14.7 % (11.6-14.6)
[2020-04-25] MEDS: INSULIN LISPRO 100 UNITS/ML SUBCUT SCH ×4 (05:49→18:00)
[2020-04-25 06:07] LABS: PHOSPHORUS 3.6 mg/dL (2.5-4.9)
[2020-04-25] MEDS: DEXT 5%/0.45% NACL 1000ML 1,000 ML IV SCH (06:12)
[2020-04-25] MEDS: ZINC SULFATE 220 MG ( 50 ) CAPSULE PO SCH (09:11)
[2020-04-25] MEDS: LEVETIRACETAM 500MG PREMIX 100 ML IV SCH ×2 (09:11→21:15)
[2020-04-25] MEDS: ENOXAPARIN 40MG/0.4ML SYR SUBCUT SCH (09:11)
[2020-04-25] MEDS: PANTOPRAZOLE SODIUM 40 MG/VIAL IV SCH (09:11)
[2020-04-25] MEDS: ASCORBIC ACID 500 MG TABLET PO SCH (09:11)
[2020-04-25] MEDS ORDERED: AMLODIPINE 2.5MG TABLET PO SCH (10:45)
[2020-04-25] MEDS: INSULIN GLARGINE UD 100 UNITS/ML SYR SUBCUT SCH ×2 (11:18→21:16)
[2020-04-26] VITALS (46 sets, daily range): BP systolic 123–164; BP diastolic 66–88
[2020-04-26] MEDS: IPRATROPIUM/ALBUTEROL 0.5-3(2.5)MG/3ML NEB HHN SCH ×6 (00:20→19:50)
[2020-04-26] MEDS: BLOOD SUGAR DIAGNOSTIC STRIP TEST SCH ×4 (00:20→17:59)
[2020-04-26] MEDS: MEROPENEM 1,000 MG in SODIUM CHLORIDE 0.9% 100 ML IV SCH ×2 (02:01→13:05)
[2020-04-26] MEDS: INSULIN LISPRO 100 UNITS/ML SUBCUT SCH ×4 (06:00→17:59)
[2020-04-26] MEDS: DEXT 5%/0.45% NACL 1000ML 1,000 ML IV SCH (06:08)
[2020-04-26 07:44] LABS: BG BASE EXCESS -0.7 mmol/L (-2.0-2.0); BG CARBOXYHEMOGLOBIN 0.3 % (0.5-1.5); BG DEOXYHEMOGLOBIN 2.2 % (0.0-5.0); BG FRACTION INSPIRED OXYGEN 40; BG METHEMOGLOBIN 0.2 % (0.0-1.5); BG OXYGEN SATURATION 97.8 % (92.0-98.5); BG OXYHEMOGLOBIN 97.3 % (94.0-97.0); BG PCO2 39.3 mmHg (35.0-45.0); BG PH 7.403 (7.350-7.450); BG PO2 110.8 mmHg (75.0-100.0); BG SAMPLE SITE RIGHT RADIAL; BG TIDAL VOLUME(mL) 500 mL; BG TOTAL HEMOGLOBIN 9.1 g/dL (12.0-18.0); BG VENT MODE VENT - A/C; BG VENT RATE 12 set
[2020-04-26] MEDS: ASCORBIC ACID 500 MG TABLET PO SCH (09:17)
[2020-04-26] MEDS: ENOXAPARIN 40MG/0.4ML SYR SUBCUT SCH (09:17)
[2020-04-26] MEDS: AMLODIPINE 2.5MG TABLET NG SCH ×2 (09:17→21:08)
[2020-04-26] MEDS: ZINC SULFATE 220 MG ( 50 ) CAPSULE PO SCH (09:17)
[2020-04-26] MEDS: PANTOPRAZOLE SODIUM 40 MG/VIAL IV SCH (09:17)
[2020-04-26] MEDS: INSULIN GLARGINE UD 100 UNITS/ML SYR SUBCUT SCH ×2 (09:20→21:07)
[2020-04-26] MEDS: LEVETIRACETAM 500MG PREMIX 100 ML IV SCH ×2 (09:20→21:07)
[2020-04-26 09:26] LABS: BASOPHILS % 0.6 % (0.0-2.0); EOSINOPHILS % 2.4 % (0.0-5.0); HEMATOCRIT. 23.7 % (42.0-52.0); HEMOGLOBIN. 7.8 g/dL (14.0-18.0); LYMPHOCYTES % 11.3 % (20.0-50.0); MEAN CORPUSCULAR HEMOGLOBIN 30.3 pg (28.0-32.0); MEAN CORPUSCULAR VOLUME 91.6 fL (80.0-94.0); MONOCYTES % 4.1 % (2.0-8.0); NEUTROPHILS % 81.6 % (40.0-76.0); PLATELET 274 x1000/uL (130-400); RED BLOOD CELL COUNT 2.59 mill/uL (4.7-6.1)
[2020-04-26 12:12] LABS: BG CARBOXYHEMOGLOBIN 0.3 % (0.5-1.5); BG DEOXYHEMOGLOBIN 3.7 % (0.0-5.0); BG FRACTION INSPIRED OXYGEN 30; BG HCO3 ACT 20.5 mmol/L (22.0-26.0); BG METHEMOGLOBIN 0.1 % (0.0-1.5); BG OXYGEN SATURATION 96.3 % (92.0-98.5); BG OXYHEMOGLOBIN 95.9 % (94.0-97.0); BG PCO2 30.3 mmHg (35.0-45.0); BG PH 7.448 (7.350-7.450); BG PO2 84.5 mmHg (75.0-100.0); BG PRESSURE SUPPORT 12; BG SAMPLE SITE RIGHT RADIAL; BG TIDAL VOLUME(mL) 500 mL; BG TOTAL HEMOGLOBIN 8.4 g/dL (12.0-18.0); BG VENT MODE VENT - SIMV; BG VENT RATE 8 set
[2020-04-27] VITALS (45 sets, daily range): BP systolic 115–166; BP diastolic 67–107
[2020-04-27] MEDS: IPRATROPIUM/ALBUTEROL 0.5-3(2.5)MG/3ML NEB HHN SCH ×6 (00:07→20:00)
[2020-04-27] MEDS: BLOOD SUGAR DIAGNOSTIC STRIP TEST SCH ×4 (00:33→18:47)
[2020-04-27] MEDS: MEROPENEM 1,000 MG in SODIUM CHLORIDE 0.9% 100 ML IV SCH ×2 (02:06→13:34)
[2020-04-27 05:15] LABS: BASOPHILS % 0.6 % (0.0-2.0); EOSINOPHILS % 2.3 % (0.0-5.0); HEMATOCRIT. 26.8 % (42.0-52.0); HEMOGLOBIN. 8.9 g/dL (14.0-18.0); LYMPHOCYTES % 14.4 % (20.0-50.0); MEAN CORPUSCULAR HEMOGLOBIN 30.3 pg (28.0-32.0); MEAN CORPUSCULAR VOLUME 91.1 fL (80.0-94.0); MEAN PLATELET VOLUME 8.9 fl (7.4-10.4); MONOCYTES % 4.1 % (2.0-8.0); NEUTROPHILS % 78.6 % (40.0-76.0); PLATELET 334 x1000/uL (130-400); RED BLOOD CELL COUNT 2.94 mill/uL (4.7-6.1)
[2020-04-27 05:24] LABS: CHLORIDE 110 mEq/L (98-107)
[2020-04-27 05:30] LABS: PHOSPHORUS 4.5 mg/dL (2.5-4.9)
[2020-04-27] MEDS: INSULIN LISPRO 100 UNITS/ML SUBCUT SCH ×4 (05:39→18:00)
[2020-04-27] MEDS: DEXT 5%/0.45% NACL 1000ML 1,000 ML IV SCH (05:53)
[2020-04-27 08:32] LABS: BG BASE EXCESS 0.1 mmol/L (-2.0-2.0); BG DEOXYHEMOGLOBIN 3.8 % (0.0-5.0); BG FRACTION INSPIRED OXYGEN 30; BG HCO3 ACT 23.8 mmol/L (22.0-26.0); BG METHEMOGLOBIN 0.2 % (0.0-1.5); BG OXYGEN SATURATION 96.2 % (92.0-98.5); BG PCO2 34.7 mmHg (35.0-45.0); BG PH 7.454 (7.350-7.450); BG PRESSURE SUPPORT 12; BG SAMPLE SITE RIGHT RADIAL; BG TIDAL VOLUME(mL) 500 mL; BG TOTAL HEMOGLOBIN 8.6 g/dL (12.0-18.0); BG VENT MODE VENT - SIMV; BG VENT RATE 8 set
[2020-04-27] MEDS: ASCORBIC ACID 500 MG TABLET PO SCH (09:00)
[2020-04-27] MEDS: INSULIN GLARGINE UD 100 UNITS/ML SYR SUBCUT SCH ×2 (09:57→21:31)
[2020-04-27] MEDS: LEVETIRACETAM 500MG PREMIX 100 ML IV SCH ×2 (09:57→20:54)
[2020-04-27] MEDS: ENOXAPARIN 40MG/0.4ML SYR SUBCUT SCH (09:57)
[2020-04-27] MEDS: PANTOPRAZOLE SODIUM 40 MG/VIAL IV SCH (09:57)
[2020-04-27] MEDS: AMLODIPINE 5MG TABLET NG SCH ×2 (09:58→20:54)
[2020-04-27] MEDS: ZINC SULFATE 220 MG ( 50 ) CAPSULE PO SCH (09:58)
[2020-04-27 15:51] LABS: BG CARBOXYHEMOGLOBIN 0.3 % (0.5-1.5); BG DEOXYHEMOGLOBIN 3.8 % (0.0-5.0); BG FRACTION INSPIRED OXYGEN 30; BG HCO3 ACT 23.6 mmol/L (22.0-26.0); BG METHEMOGLOBIN 0.3 % (0.0-1.5); BG OXYGEN SATURATION 96.2 % (92.0-98.5); BG OXYHEMOGLOBIN 95.6 % (94.0-97.0); BG PCO2 34.2 mmHg (35.0-45.0); BG PH 7.457 (7.350-7.450); BG PO2 80.8 mmHg (75.0-100.0); BG PRESSURE SUPPORT 10; BG SAMPLE SITE RIGHT RADIAL; BG TIDAL VOLUME(mL) 500 mL; BG TOTAL HEMOGLOBIN 8.5 g/dL (12.0-18.0); BG VENT MODE VENT - SIMV; BG VENT RATE 8 set
[2020-04-28] VITALS (32 sets, daily range): BP systolic 121–167; BP diastolic 64–93
[2020-04-28] MEDS: IPRATROPIUM/ALBUTEROL 0.5-3(2.5)MG/3ML NEB HHN SCH ×6 (00:10→20:00)
[2020-04-28] MEDS: MEROPENEM 1,000 MG in SODIUM CHLORIDE 0.9% 100 ML IV SCH ×2 (01:58→13:10)
[2020-04-28] MEDS: BLOOD SUGAR DIAGNOSTIC STRIP TEST SCH ×4 (05:01→17:30)
[2020-04-28] MEDS: INSULIN LISPRO 100 UNITS/ML SUBCUT SCH ×4 (05:01→17:31)
[2020-04-28 06:42] LABS: CHLORIDE 111 mEq/L (98-107)
[2020-04-28] MEDS: DEXT 5%/0.45% NACL 1000ML 1,000 ML IV SCH ×2 (07:33→23:28)
[2020-04-28] MEDS: PANTOPRAZOLE SODIUM 40 MG/VIAL IV SCH (08:26)
[2020-04-28] MEDS: ZINC SULFATE 220 MG ( 50 ) CAPSULE PO SCH (08:26)
[2020-04-28] MEDS: AMLODIPINE 5MG TABLET NG SCH ×2 (08:26→21:34)
[2020-04-28] MEDS: ASCORBIC ACID 500 MG TABLET PO SCH (08:26)
[2020-04-28] MEDS: LEVETIRACETAM 500MG PREMIX 100 ML IV SCH ×2 (08:27→21:34)
[2020-04-28 08:28] LABS: BASOPHILS % 1.2 % (0.0-2.0); EOSINOPHILS % 2.3 % (0.0-5.0); HEMATOCRIT. 27.4 % (42.0-52.0); LYMPHOCYTES % 12.2 % (20.0-50.0); MEAN CORPUSCULAR VOLUME 91.1 fL (80.0-94.0); MONOCYTES % 4.3 % (2.0-8.0); RED BLOOD CELL COUNT 3.01 mill/uL (4.7-6.1); RED CELL DISTRIBUTION WIDTH 15.1 % (11.6-14.6)
[2020-04-28] MEDS: ENOXAPARIN 40MG/0.4ML SYR SUBCUT SCH (08:30)
[2020-04-28 09:04] LABS: BG BASE EXCESS 1.7 mmol/L (-2.0-2.0); BG CARBOXYHEMOGLOBIN 0.3 % (0.5-1.5); BG DEOXYHEMOGLOBIN 3.2 % (0.0-5.0); BG FRACTION INSPIRED OXYGEN 30; BG HCO3 ACT 25.5 mmol/L (22.0-26.0); BG METHEMOGLOBIN 0.4 % (0.0-1.5); BG OXYGEN SATURATION 96.8 % (92.0-98.5); BG OXYHEMOGLOBIN 96.1 % (94.0-97.0); BG PH 7.457 (7.350-7.450); BG PO2 88.7 mmHg (75.0-100.0); BG PRESSURE SUPPORT 10; BG SAMPLE SITE RIGHT RADIAL; BG TIDAL VOLUME(mL) 500 mL; BG TOTAL HEMOGLOBIN 8.6 g/dL (12.0-18.0); BG VENT MODE VENT - SIMV; BG VENT RATE 6 set
[2020-04-28 09:44] LABS: PLATELET 314 x1000/uL (130-400)
[2020-04-28] MEDS: INSULIN GLARGINE UD 100 UNITS/ML SYR SUBCUT SCH ×2 (09:50→21:34)
[2020-04-28 10:42] LABS: BG BASE EXCESS -0.2 mmol/L (-2.0-2.0); BG CARBOXYHEMOGLOBIN 0.3 % (0.5-1.5); BG DEOXYHEMOGLOBIN 3.8 % (0.0-5.0); BG FRACTION INSPIRED OXYGEN 30; BG HCO3 ACT 23.5 mmol/L (22.0-26.0); BG METHEMOGLOBIN 0.3 % (0.0-1.5); BG OXYGEN SATURATION 96.2 % (92.0-98.5); BG OXYHEMOGLOBIN 95.6 % (94.0-97.0); BG PCO2 34.3 mmHg (35.0-45.0); BG PH 7.453 (7.350-7.450); BG PO2 85.1 mmHg (75.0-100.0); BG PRESSURE SUPPORT 8; BG SAMPLE SITE RIGHT RADIAL; BG TOTAL HEMOGLOBIN 9.1 g/dL (12.0-18.0); BG VENT MODE VENT - CPAP
[2020-04-28] MEDS: LOSARTAN POTASSIUM 25 MG TABLET PO SCH (13:09)
[2020-04-29] VITALS (12 sets, daily range): BP systolic 118–141; BP diastolic 65–77
[2020-04-29] MEDS: IPRATROPIUM/ALBUTEROL 0.5-3(2.5)MG/3ML NEB HHN SCH ×6 (00:50→20:44)
[2020-04-29] MEDS: MEROPENEM 1,000 MG in SODIUM CHLORIDE 0.9% 100 ML IV SCH (02:20)
[2020-04-29] MEDS: BLOOD SUGAR DIAGNOSTIC STRIP TEST SCH ×5 (06:00→23:49)
[2020-04-29] MEDS: INSULIN LISPRO 100 UNITS/ML SUBCUT SCH ×5 (06:00→23:50)
[2020-04-29 06:58] LABS: BASOPHILS % 0.6 % (0.0-2.0); EOSINOPHILS % 2.4 % (0.0-5.0); HEMOGLOBIN. 8.7 g/dL (14.0-18.0); LYMPHOCYTES % 15.4 % (20.0-50.0); MEAN CORPUSCULAR HEMOGLOBIN 30.3 pg (28.0-32.0); MEAN CORPUSCULAR VOLUME 91.2 fL (80.0-94.0); MEAN PLATELET VOLUME 8.8 fl (7.4-10.4); MONOCYTES % 4.7 % (2.0-8.0); NEUTROPHILS % 76.9 % (40.0-76.0); PLATELET 354 x1000/uL (130-400); RED BLOOD CELL COUNT 2.86 mill/uL (4.7-6.1)
[2020-04-29] MEDS: LEVETIRACETAM 500MG PREMIX 100 ML IV SCH ×2 (09:10→21:14)
[2020-04-29] MEDS: ZINC SULFATE 220 MG ( 50 ) CAPSULE PO SCH (09:11)
[2020-04-29] MEDS: LOSARTAN POTASSIUM 25 MG TABLET PO SCH (09:11)
[2020-04-29] MEDS: PANTOPRAZOLE SODIUM 40 MG/VIAL IV SCH (09:11)
[2020-04-29] MEDS: ASCORBIC ACID 500 MG TABLET PO SCH (09:11)
[2020-04-29] MEDS: AMLODIPINE 5MG TABLET NG SCH ×2 (09:11→21:14)
[2020-04-29] MEDS: ENOXAPARIN 40MG/0.4ML SYR SUBCUT SCH (09:12)
[2020-04-29] MEDS: FAMOTIDINE 20MG TABLET PO SCH (21:14)
[2020-04-29] MEDS: INSULIN GLARGINE UD 100 UNITS/ML SYR SUBCUT SCH (21:15)
[2020-04-30] VITALS (11 sets, daily range): BP systolic 119–145; BP diastolic 68–88
[2020-04-30] MEDS: IPRATROPIUM/ALBUTEROL 0.5-3(2.5)MG/3ML NEB HHN SCH ×6 (00:37→20:28)
[2020-04-30] MEDS: INSULIN LISPRO 100 UNITS/ML SUBCUT SCH ×3 (06:00→18:00)
[2020-04-30] MEDS: BLOOD SUGAR DIAGNOSTIC STRIP TEST SCH ×3 (06:26→18:10)
[2020-04-30 06:39] LABS: BASOPHILS % 0.7 % (0.0-2.0); HEMATOCRIT. 26.5 % (42.0-52.0); HEMOGLOBIN. 8.7 g/dL (14.0-18.0); LYMPHOCYTES % 18.4 % (20.0-50.0); MEAN CORPUSCULAR HEMOGLOBIN 29.7 pg (28.0-32.0); MEAN CORPUSCULAR VOLUME 90.6 fL (80.0-94.0); MEAN PLATELET VOLUME 8.9 fl (7.4-10.4); MONOCYTES % 6.1 % (2.0-8.0); NEUTROPHILS % 71.8 % (40.0-76.0); PLATELET 374 x1000/uL (130-400); RED BLOOD CELL COUNT 2.93 mill/uL (4.7-6.1); RED CELL DISTRIBUTION WIDTH 14.8 % (11.6-14.6)
[2020-04-30 06:47] LABS: CHLORIDE 105 mEq/L (98-107)
[2020-04-30] MEDS: ASCORBIC ACID 500 MG TABLET PO SCH (09:27)
[2020-04-30] MEDS: LOSARTAN POTASSIUM 25 MG TABLET PO SCH (09:27)
[2020-04-30] MEDS: ZINC SULFATE 220 MG ( 50 ) CAPSULE PO SCH (09:27)
[2020-04-30] MEDS: AMLODIPINE 5MG TABLET NG SCH ×2 (09:27→21:45)
[2020-04-30] MEDS: LEVETIRACETAM 500MG PREMIX 100 ML IV SCH (09:28)
[2020-04-30] MEDS: DEXT 5%/0.45% NACL 1000ML 1,000 ML IV SCH (09:28)
[2020-04-30] MEDS: ENOXAPARIN 40MG/0.4ML SYR SUBCUT SCH (09:28)
[2020-04-30] MEDS: INSULIN GLARGINE UD 100 UNITS/ML SYR SUBCUT SCH ×2 (10:47→21:45)
[2020-04-30] MEDS ORDERED: AMLO5TAB88 NG (11:24)
[2020-04-30] MEDS ORDERED: FAMO20TA8 PO (11:24)
[2020-04-30] MEDS ORDERED: LOSA25TA3 PO (11:24)
[2020-04-30] MEDS ORDERED: ASPI-1158 MT (11:41)
[2020-04-30] MEDS ORDERED: LEVETIRACETAM 500MG TABLET GT SCH (21:30)
[2020-04-30] MEDS: FAMOTIDINE 20MG TABLET PO SCH (21:44)
== END 2020-04-30 22:45 | DRG 870 ==
LOC: ER 22:26 → MICUSO 04-16 02:19 → CVICU 04-17 16:49 → 5EST 04-28 23:00
PROVIDERS: ADMIT Internal Medicine; ATTEND Internal Medicine
PROC: 5A1955Z Respiratory Ventilation, Greater than 96 Consecutive Hours (ICD-10-PCS; principal; 2020-04-15)
PROC: 0BH17EZ Insertion of Endotracheal Airway into Trachea, Via Natural or Artificial Opening (ICD-10-PCS; 2020-04-15)
PROC: 06HY33Z Insertion of Infusion Device into Lower Vein, Percutaneous Approach (ICD-10-PCS; 2020-04-16)
PROC: 05HY33Z Insertion of Infusion Device into Upper Vein, Percutaneous Approach (ICD-10-PCS; 2020-04-24)
PROC: B54NZZA Ultrasonography of Left Upper Extremity Veins, Guidance (ICD-10-PCS; 2020-04-24)
DX: A41.9 Sepsis, unspecified organism (principal); L89.153 Pressure ulcer of sacral region, stage 3; J18.9 Pneumonia, unspecified organism; J96.01 Acute respiratory failure with hypoxia; R65.21 Severe sepsis with septic shock; G92 Toxic encephalopathy; I21.A1 Myocardial infarction type 2; E44.0 Moderate protein-calorie malnutrition; N17.9 Acute kidney failure, unspecified; N39.0 Urinary tract infection, site not specified; E87.0 Hyperosmolality and hypernatremia; E87.2 Acidosis; N28.0 Ischemia and infarction of kidney; I13.0 Hypertensive heart and chronic kidney disease with heart failure and stage 1 through stage 4 chronic kidney disease, or unspecified chronic kidney disease; I50.22 Chronic systolic (congestive) heart failure; N18.9 Chronic kidney disease, unspecified; G40.909 Epilepsy, unspecified, not intractable, without status epilepticus; E11.22 Type 2 diabetes mellitus with diabetic chronic kidney disease; D64.9 Anemia, unspecified; E86.1 Hypovolemia; D72.810 Lymphocytopenia; L89.896 Pressure-induced deep tissue damage of other site; L89.626 Pressure-induced deep tissue damage of left heel; E78.00 Pure hypercholesterolemia, unspecified; Z20.828 Contact with and (suspected) exposure to other viral communicable diseases; E78.5 Hyperlipidemia, unspecified; F01.50 Vascular dementia, unspecified severity, without behavioral disturbance, psychotic disturbance, mood disturbance, and anxiety; B96.1 Klebsiella pneumoniae [K. pneumoniae] as the cause of diseases classified elsewhere; R13.10 Dysphagia, unspecified; Z68.27 Body mass index [BMI] 27.0-27.9, adult; Z93.1 Gastrostomy status; I69.311 Memory deficit following cerebral infarction; Z78.1 Physical restraint status
CPT/HCPCS: 31500; 36415; 36600; 70551; 71045; 76770; 76937; 80048; 80053; 80061; 80202; 80305; 80320; 81003; 82040; 82043; 82140; 82270; 82330; 82375; 82550; 82570; 82607; 82728; 82746; 82805; 82962; 83036; 83605; 83615; 83735; 83880; 84100; 84134; 84145; 84300; 84439; 84443; 84481; 84484; 85025; 86140; 87070; 87077; 87186; 93005; 93306; 93970; 93971; 94002; 94003; 94640; 97161; 99291; C1725; C9113; J0692; J1170; J1650; J1815; J1953; J2060; J2185; J2405; J2543; J3010; J3370; J3480; J3490; J7030; J7042; J7050; J7060; J7608; C9803-CS; G0480; U0003-CS

== ENCOUNTER 2020-05-05 15:56 | Inpatient (IN) | payer MEDICARE, MEDICAID ==
[~2020-05-05] VITALS: Ht 172.7 cm; Wt 86.4 kg
[~2020-05-05 15:56] MED LIST: AMLO5TAB88 NG; FAMO20TA8 PO; LOSA25TA3 PO
[2020-05-05] MEDS ORDERED: SUCCINYLCHOLINE CHLORIDE 200MG/10ML IV ONE (16:12)
[2020-05-05] MEDS ORDERED: ETOMIDATE 2MG/ML 10ML VIAL IV ONE (16:12)
[2020-05-05] MEDS ORDERED: SODIUM CHLORIDE 0.9% 1000ML BAG (SEPSIS BOLUS) IV ONE (16:45)
[2020-05-05] MEDS ORDERED: MIDAZOLAM HCL 50 MG in DEXTROSE 5% WATER 40 ML IV ONE (16:45)
[2020-05-05] MEDS ORDERED: FENTANYL CITRATE/PF 2,500 MCG in SODIUM CHLORIDE 0.9% 200 ML IV PRN ×2 (16:45→17:00)
[2020-05-05] MEDS ORDERED: PIPERACILLIN/TAZ 3.375G PREMIX 50 ML IV ONE (16:45)
[2020-05-05] MEDS ORDERED: VANCOMYCIN 1 G PREMIX 200 ML IV ONE (16:45)
[2020-05-05] MEDS ORDERED: MIDAZOLAM HCL 2 MG/2 ML VIAL IV ONE (16:45)
[2020-05-05] MEDS ORDERED: MIDAZOLAM HCL 100 MG in DEXT 5% WATER 80 ML IV NR (17:00)
[2020-05-05] MEDS ORDERED: NOREPINEPHRINE 4MG/250ML PMX 250 ML IV ONE (17:15)
[2020-05-05 17:22] LABS: HEMATOCRIT. 33.4 % (42.0-52.0); HEMOGLOBIN. 10.8 g/dL (14.0-18.0); MEAN CORPUSCULAR HEMOGLOBIN 29.7 pg (28.0-32.0); MEAN CORPUSCULAR VOLUME 91.5 fL (80.0-94.0); MEAN PLATELET VOLUME 8.7 fl (7.4-10.4); PLATELET 516 x1000/uL (130-400); RED BLOOD CELL COUNT 3.65 mill/uL (4.7-6.1); RED CELL DISTRIBUTION WIDTH 15.7 % (11.6-14.6)
[2020-05-05 17:29] LABS: CHLORIDE 107 mEq/L (98-107)
[2020-05-05 17:31] LABS: INR 1.1; PROTHROMBIN TIME 11.5 sec (9.6-11.0)
[2020-05-05] MEDS ORDERED: SODIUM CHLORIDE 0.9% 1,000 ML IV SCH (17:55)
[2020-05-05] MEDS ORDERED: ACETAMINOPHEN 650MG/20.3ML UDC GT PRN (18:00)
[2020-05-05] MEDS ORDERED: CLONIDINE 0.1MG TABLET PO PRN (18:00)
[2020-05-05] MEDS ORDERED: ONDANSETRON HCL 4MG/2ML INJ IV PRN (18:00)
[2020-05-05] MEDS ORDERED: AZITHROMYCIN 500 MG TABLET PO SCH (18:15)
[2020-05-05 18:17] LABS: NUCLEATED RED BLOOD CELLS 1 /100 WBC; PLATELET ESTIMATE INCREAS
[2020-05-05] MEDS ORDERED: CEFEPIME 2,000 MG in DEXT 5% WATER 100 ML IV SCH (18:30)
[2020-05-05] MEDS ORDERED: VANCOMYCIN 1250MG in DEXTROSE 5% WATER 250ML IV NR (18:45)
[2020-05-05 19:05] LABS: PHOSPHORUS 3.1 mg/dL (2.5-4.9)
[2020-05-05] MEDS ORDERED: NOREPINEPHRINE 4 MG in DEXTROSE 5% WATER 250 ML IV PRN (20:15)
[2020-05-05] MEDS ORDERED: NOREPINEPHRINE 4MG/250ML PMX 250 ML IV PRN (20:15)
[2020-05-05] MEDS: PHENYLEPHRINE 10 MG in DEXTROSE 5% WATER 250 ML IV PRN (20:30)
[2020-05-05] MEDS: VASOPRESSIN 10 UNIT in SODIUM CHLORIDE 0.9% 100 ML IV PRN (21:06)
[2020-05-05 21:30] LABS: BG BASE EXCESS -9.2 mmol/L (-2.0-2.0); BG CARBOXYHEMOGLOBIN 0.1 % (0.5-1.5); BG DEOXYHEMOGLOBIN 15.3 % (0.0-5.0); BG FRACTION INSPIRED OXYGEN 100; BG HCO3 ACT 18.2 mmol/L (22.0-26.0); BG METHEMOGLOBIN 0.1 % (0.0-1.5); BG OXYGEN SATURATION 84.7 % (92.0-98.5); BG OXYHEMOGLOBIN 84.5 % (94.0-97.0); BG PCO2 45.8 mmHg (35.0-45.0); BG PH 7.218 (7.350-7.450); BG PO2 59.8 mmHg (75.0-100.0); BG SAMPLE SITE LEFT RADIAL; BG TOTAL HEMOGLOBIN 11.6 g/dL (12.0-18.0); BG VENT MODE VENT - A/C PC
[2020-05-05] MEDS: NOREPINEPHRINE 4 MG in DEXTROSE 5% WATER 250 ML IV PRN (21:51)
[2020-05-05] MEDS ORDERED: PIPERACILLIN/TAZ 3.375G PREMIX 50 ML IV SCH (22:00)
[2020-05-05] MEDS ORDERED: SODIUM BICARBONATE 8.4% 1 MEQ/ML 50ML SYR IV NR (22:09)
[2020-05-05] MEDS: MEROPENEM 1,000 MG in SODIUM CHLORIDE 0.9% 100 ML IV SCH (22:22)
[2020-05-05] MEDS: EPINEPHRINE 1 MG in SODIUM CHLORIDE 0.9% 250 ML IV PRN (22:39)
[2020-05-05] MEDS ORDERED: FENTANYL 1,000 MCG in SODIUM CHLORIDE 0.9% 100 ML IV PRN (23:00)
[2020-05-05 23:17] LABS: CLARITY URINE CLOUDY (CLEAR); COLOR URINE YELLOW (YELLOW); KETONES URINE NEGATIVE (NEGATIVE); LEUKOCYTE ESTERASE URINE 1+ (NEGATIVE); NITRITE URINE NEGATIVE (NEGATIVE); OCCULT BLOOD URINE 3+ (NEGATIVE); PROTEIN URINE 3+ (NEGATIVE); SPECIFIC GRAVITY URINE 1.021 (1.005-1.030); UROBILINOGEN URINE 0.2 E.U./dL (0.2-1.0)
[2020-05-06] VITALS (16 sets, daily range): BP systolic 41–137; BP diastolic 27–115
[2020-05-06 00:09] LABS: CREATINE KINASE MB FRACTION 7.3 ng/mL (0.5-3.6)
[2020-05-06] MEDS: NOREPINEPHRINE 4 MG in DEXTROSE 5% WATER 250 ML IV PRN ×4 (01:08→09:52)
[2020-05-06] MEDS: PHENYLEPHRINE 10 MG in DEXTROSE 5% WATER 250 ML IV PRN ×3 (01:09→09:50)
[2020-05-06] MEDS: VASOPRESSIN 10 UNIT in SODIUM CHLORIDE 0.9% 100 ML IV PRN ×3 (02:37→09:52)
[2020-05-06 05:49] LABS: CHLORIDE 109 mEq/L (98-107)
[2020-05-06] MEDS: MEROPENEM 1,000 MG in SODIUM CHLORIDE 0.9% 100 ML IV SCH (05:52)
[2020-05-06 05:55] LABS: LDL CHOLESTEROL 37 mg/dL (5-100)
[2020-05-06 05:56] LABS: HDL CHOLESTEROL 31 mg/dL (40-59)
[2020-05-06 05:58] LABS: CREATINE KINASE 602 IU/L (39-308)
[2020-05-06] MEDS ORDERED: VANCOMYCIN 750 MG PREMIX 150 ML IV SCH (07:00)
[2020-05-06] MEDS: EPINEPHRINE 1 MG in SODIUM CHLORIDE 0.9% 250 ML IV PRN ×2 (07:04→09:51)
[2020-05-06] MEDS ORDERED: DEXTROSE 50% WATER 50ML SYRINGE IV PRN (07:30)
[2020-05-06] MEDS ORDERED: INSULIN LISPRO (MEDIUM DOSE) 100 UNITS/ML SUBCUT SCH (07:30)
[2020-05-06] MEDS ORDERED: NOREPINEPHRINE 32 MG in DEXT 5% WATER 468 ML IV PRN (10:00)
[2020-05-06] MEDS ORDERED: PHENYLEPHRINE 80 MG in DEXT 5% WATER 492 ML IV PRN (10:15)
[2020-05-06] MEDS ORDERED: MORPHINE SULFATE 4 MG/ML CPJ (NOT FOR IM USE) IV NR (10:30)
[2020-05-06] MEDS ORDERED: BLOOD SUGAR DIAGNOSTIC STRIP TEST SCH (11:30)
[2020-05-06] MEDS ORDERED: MEROPENEM 1,000 MG in SODIUM CHLORIDE 0.9% 100 ML IV SCH (18:00)
[2020-05-07] MEDS ORDERED: VANCOMYCIN 1 G PREMIX 200 ML IV SCH (01:00)
== END 2020-05-06 13:41 | disposition expired | DRG 871 ==
LOC: ER 15:56 → MICUSO 16:50 → EDBEDREQTM 16:53 → EDBEDREQ 16:53 → CVICU 05-06 08:02 → MICUSO 05-06 08:08
PROVIDERS: ADMIT Internal Medicine; ATTEND Internal Medicine
PROC: 0BH17EZ Insertion of Endotracheal Airway into Trachea, Via Natural or Artificial Opening (ICD-10-PCS; principal; 2020-05-05)
PROC: 02HV33Z Insertion of Infusion Device into Superior Vena Cava, Percutaneous Approach (ICD-10-PCS; 2020-05-05)
PROC: B548ZZA Ultrasonography of Superior Vena Cava, Guidance (ICD-10-PCS; 2020-05-05)
PROC: 5A1935Z Respiratory Ventilation, Less than 24 Consecutive Hours (ICD-10-PCS; 2020-05-05)
DX: A41.9 Sepsis, unspecified organism (principal); J69.0 Pneumonitis due to inhalation of food and vomit; J96.01 Acute respiratory failure with hypoxia; R65.21 Severe sepsis with septic shock; E87.2 Acidosis; I13.0 Hypertensive heart and chronic kidney disease with heart failure and stage 1 through stage 4 chronic kidney disease, or unspecified chronic kidney disease; I50.22 Chronic systolic (congestive) heart failure; Z66 Do not resuscitate; E11.22 Type 2 diabetes mellitus with diabetic chronic kidney disease; F01.50 Vascular dementia, unspecified severity, without behavioral disturbance, psychotic disturbance, mood disturbance, and anxiety; G40.909 Epilepsy, unspecified, not intractable, without status epilepticus; I46.9 Cardiac arrest, cause unspecified; L89.90 Pressure ulcer of unspecified site, unspecified stage; Z20.828 Contact with and (suspected) exposure to other viral communicable diseases; N18.9 Chronic kidney disease, unspecified; R13.10 Dysphagia, unspecified; Z51.5 Encounter for palliative care; Z93.1 Gastrostomy status; Z79.899 Other long term (current) drug therapy
CPT/HCPCS: 36415; 36600; 71045; 80053; 80061; 81003; 82375; 82550; 82553; 82805; 82962; 83605; 83735; 84100; 84145; 84484; 85025; 87635; 93005; 94002; 96365; 99291; J0330; J0692; J1815; J2185; J2250; J2370; J2543; J3010; J3370; J3490; J7030; J7050; J7060